=== PATIENT | female | born 1960 | race Caucasian/White ===

== ENCOUNTER → 2018-04-27 | Day surgery (SDC) | END | disposition home or self-care (01) ==

== ENCOUNTER 2018-11-06 06:06 | Day surgery (SDC) | payer OTHER ==
[~2018-11-06] VITALS: Ht 149.9 cm; Wt 57.1 kg
[~2018-11-06 06:06] MED LIST: NITR0.4T39 SL; PROP10TA6 PO
[2018-11-06 06:58] VITALS: Ht 149.9 cm; Wt 57.1 kg
[2018-11-06 07:26] VITALS: BP 108/55; PULSE 51; RESP 18
[2018-11-06] MEDS ORDERED: FENTAnyl 50 MCG/ML VIAL ONE (09:13)
[2018-11-06] MEDS ORDERED: MIDAZOLAM 1 MG/ML 2 ML INJ ONE ×2 (09:14)
== END 2018-11-06 12:51 | disposition home or self-care (01) ==
LOC: GIL 06:06
PROVIDERS: ATTEND Internal Medicine Gastroenterology
DX: Z12.11 Encounter for screening for malignant neoplasm of colon (principal); K64.8 Other hemorrhoids; K21.9 Gastro-esophageal reflux disease without esophagitis; I10 Essential (primary) hypertension
CPT/HCPCS: 43239; 45378; 88305; 88312; J2250; J3010